=== PATIENT | female | born 1980 | race American Indian/Alaskan Native ===

== ENCOUNTER 2019-10-05 16:24 | Emergency (ER) | payer SELFPAY ==
--- NOTE | 2019-10-05 18:28 | Emergency Department Report ---
ED Psych HPI - General Chief Complaint: Psych Stated Complaint: MEDICAL CLEARANCE Time Seen by Provider: 10/05/19 18:14 Source: patient, EMS Mode of arrival: Ambulatory - History of Present Illness Initial Comments: Patient is 39 years old female with no past psychiatric history. Patient was referred from [facility] to [place] for evaluation of auditory hallucination and tactile hallucination for the last 3 weeks. Patient stated that she is hearing voices asking had to move away from the door and when she moved she will her someone saying thank you. Patient also exhibiting a bizarre behavior. Patient also stating that she is feeling something crawling on her legs into her private area. Patient stated that she feels "want to get a scissor and poke herself. Patient denied any suicidal or homicidal ideation. She also denied any visual hallucination. MD Complaint: altered mental status Associated Psychiatric Symptoms: racing thoughts, auditory hallucinations History of same: No Quality: constant Associated Symptoms: denies other symptoms Treatments Prior to Arrival: placed on mental he - Related Data Allergies Allergy/AdvReac Type Severity Reaction Status Date / Time No Known Allergies Allergy Verified 10/05/19 17:20 ED Review of Systems ROS: Stated complaint: MEDICAL CLEARANCE Other details as noted in HPI Comment: All other systems reviewed and negative Constitutional: denies: chills, fever Respiratory: denies: cough, shortness of breath, SOB with exertion, SOB at rest, wheezing Cardiovascular: denies: chest pain, palpitations Gastrointestinal: denies: abdominal pain, nausea, vomiting, diarrhea, constipation, hematemesis, melena Neurological: denies: headache, weakness Psychiatric: auditory hallucinations. denies: depression, visual hallucinations, homicidal thoughts, suicidal thoughts ED Past Medical Hx - Past Medical History Previous Medical History?: No - Surgical History Past Surgical History?: Yes Additional Surgical History: myomectomy - Social History Smoking Status: Never Smoker Substance Use Type: None ED Physical Exam - General Limitations: No Limitations General appearance: alert, in no apparent distress, anxious - Head Head exam: Present: atraumatic, normocephalic, normal inspection - Eye Eye exam: Present: normal appearance, PERRL - ENT ENT exam: Present: normal exam, normal orophraynx, mucous membranes moist - Neck Neck exam: Present: normal inspection, full ROM. Absent: tenderness, meningismus, lymphadenopathy, thyromegaly - Respiratory Respiratory exam: Present: normal lung sounds bilaterally. Absent: respiratory distress, wheezes, rales, rhonchi, stridor, chest wall tenderness, accessory muscle use, decreased breath sounds, prolonged expiratory - Cardiovascular Cardiovascular Exam: Present: regular rate, normal rhythm, normal heart sounds - GI/Abdominal GI/Abdominal exam: Present: soft, normal bowel sounds. Absent: distended, tenderness, guarding, rebound, rigid, organomegaly, mass, bruit, pulsatile mass - Extremities Exam Extremities exam: Present: normal inspection, full ROM, normal capillary refill. Absent: tenderness, pedal edema, joint swelling, calf tenderness - Back Exam Back exam: Present: normal inspection, full ROM. Absent: CVA tenderness (R), CVA tenderness (L), muscle spasm, paraspinal tenderness, vertebral tenderness - Neurological Exam Neurological exam: Present: alert, oriented X3, CN II-XII intact, normal gait, reflexes normal - Psychiatric Psychiatric exam: Present: normal mood, anxious. Absent: depressed, agitated, manic, homicidal ideation, suicidal ideation - Skin Skin exam: Present: warm, intact, normal color Critical care attestation.: If time is entered above; I have spent that time in minutes in the direct care of this critically ill patient, excluding procedure time. ED Disposition Clinical Impression: Auditory hallucination, Tactile hallucination Disposition: DC/TX-65 PSY HOSP/PSY UNIT Is pt being admited?: No Condition: Stable
[2019-10-05 19:31] LABS: Basophils % (Auto) 0.3 % (0.0-1.8); Eosinophils # (Auto) 0.2 K/mm3 (0.0-0.4); Eosinophils % (Auto) 3.9 % (0.0-4.3); Hematocrit 38.1 % (30.3-42.9); Hemoglobin 12.4 gm/dl (10.1-14.3); Lymphocytes # (Auto) 1.9 K/mm3 (1.2-5.4); Lymphocytes % (Auto) 44.3 % (13.4-35.0); Mean Corpuscular HGB Conc 33 % (30-34); Mean Corpuscular Volume 83 fl (79-97); Monocytes # (Auto) 0.4 K/mm3 (0.0-0.8); Platelet Count 360 K/mm3 (140-440); Red Blood Count 4.57 M/mm3 (3.65-5.03)
[2019-10-05 19:49] LABS: BUN/Creatinine Ratio 20; Blood Urea Nitrogen 10 mg/dL (7-17); Calcium 10.1 mg/dL (8.4-10.2); Hemolysis Index 5
[2019-10-05 21:19] LABS: Bilirubin,Urine NEG (Negative); Blood,Urine MOD (Negative); Color,Urine Yellow (Yellow); Mucus,Urine 3+ /HPF; Urobilinogen,Urine < 2.0 mg/dL (<2.0)
[2019-10-05 21:24] LABS: Amphetamine Screen,Urine PRESUMPTIVE NEGATIVE; Benzodiazepines Screen,Urine PRESUMPTIVE NEGATIVE; Cannabinoid Screen,Urine PRESUMPTIVE NEGATIVE; Cocaine Screen,Urine PRESUMPTIVE NEGATIVE; Methadone Screen,Urine PRESUMPTIVE NEGATIVE; Opiate Screen,Urine PRESUMPTIVE NEGATIVE
[2019-10-07 09:27] VITALS: BP 130/90
== END 2019-10-07 11:34 ==
LOC: EEVIPCON 16:24 → ED 16:24
DX: R44.0 Auditory hallucinations (principal); R44.2 Other hallucinations
CPT/HCPCS: 36415; 80048; 80307; 80320; 81001; 84703; 85025; G0480

== ENCOUNTER 2021-03-16 18:03 | Emergency (ER) | payer OTHER, SELFPAY ==
--- NOTE | 2021-03-16 20:59 | Emergency Department Report ---
HPI - General Chief Complaint: Psych Time Seen by Provider: 03/16/21 20:45 - HPI HPI: This is a calm and pleasant 40-year-old female presents to the emergency department for a mental health evaluation. The patient has a history of paranoid schizophrenia for which she is compliant with her medications. Over the past 2 weeks she has been having auditory hallucinations that are telling her to "jump off a ledge." She says that the voices mostly occur when she is near a window. When asked if she has suicidal ideations the patient says "sometimes." She denies any current visual hallucinations or any homicidal ideations. The patient has a past medical history of high cholesterol for which he is also compliant with a medication. She denies any tobacco use, illicit drug use, or any alcohol use/abuse. Patient denies ever previously being in an inpatient psychiatric facility. She does not have a primary care physician or psychiatrist. ED Past Medical Hx - Past Medical History Previous Medical History?: Yes Additional medical history: Paranoid schizophrenia - Surgical History Additional Surgical History: myomectomy - Social History Smoking Status: Never Smoker Substance Use Type: None - Medications Home Medications: Home Medications Medication Instructions Recorded Confirmed Last Taken Type Citalopram [celeXA] 20 mg PO QDAY 03/16/21 03/16/21 Unknown History risperiDONE [RisperDAL] 1 mg PO QDAY 03/16/21 03/16/21 Unknown History risperiDONE [RisperDAL] 2 mg PO QHS 03/16/21 03/16/21 Unknown History ED Review of Systems ROS: Stated complaint: MENTAL HEALTH EVAL Other details as noted in HPI Comment: All other systems reviewed and negative Constitutional: denies: chills, fever Eyes: denies: vision change Respiratory: denies: cough, shortness of breath Cardiovascular: denies: chest pain, palpitations Gastrointestinal: denies: abdominal pain, vomiting Genitourinary: denies: dysuria, discharge Musculoskeletal: denies: back pain, joint swelling Neurological: denies: headache, weakness Psychiatric: auditory hallucinations, suicidal thoughts. denies: visual hallucinations, homicidal thoughts Physical Exam - Physical Exam Vital Signs: Vital Signs 03/16/21 18:33 Temperature 99.5 F Pulse Rate 100 H Respiratory 16 Rate Blood Pressure 126/69 [Right] O2 Sat by Pulse 100 Oximetry Physical Exam: GENERAL: The patient is well-developed well-nourished. HENT: Normocephalic. Atraumatic. Patient has moist mucous membranes. EYES: Extraocular motions are intact. NECK: Supple. Trachea is midline. CHEST/LUNGS: Clear to auscultation. There is no respiratory distress noted. HEART/CARDIOVASCULAR: Regular. There is no tachycardia. There is no murmur. ABDOMEN: Abdomen is soft, nontender. Patient has normal bowel sounds. SKIN: Skin is warm and dry. NEURO: The patient is awake, alert, and oriented. The patient is cooperative. Normal speech. MUSCULOSKELETAL: There is no tenderness or deformity. There is no limitation range of motion. ED Course Vital Signs 03/16/21 18:33 Temperature 99.5 F Pulse Rate 100 H Respiratory 16 Rate Blood Pressure 126/69 [Right] O2 Sat by Pulse 100 Oximetry ED Medical Decision Making - Lab Data Result diagrams: 03/16/21 20:54 03/16/21 20:54 Lab Results 03/16/21 03/16/21 03/16/21 Range/Units 20:54 20:54 20:54 WBC 7.2 (4.5-11.0) K/mm3 RBC 3.69 (3.65-5.03) M/mm3 Hgb 10.6 (10.1-14.3) gm/dl Hct 31.5 (30.3-42.9) % MCV 85 (79-97) fl MCH 29 (28-32) pg MCHC 34 (30-34) % RDW 13.8 (13.2-15.2) % Plt Count 373 (140-440) K/mm3 Lymph % (Auto) 27.5 (13.4-35.0) % Cache % (Auto) 9.1 H (0.0-7.3) % Eos % (Auto) 2.3 (0.0-4.3) % Baso % (Auto) 0.5 (0.0-1.8) % Lymph # (Auto) 2.0 (1.2-5.4) K/mm3 Cache # (Auto) 0.7 (0.0-0.8) K/mm3 Eos # (Auto) 0.2 (0.0-0.4) K/mm3 Baso # (Auto) 0.0 (0.0-0.1) K/mm3 Seg Neutrophils % 60.6 (40.0-70.0) % Seg Neutrophils # 4.4 (1.8-7.7) K/mm3 Sodium 138 (137-145) mmol/L Potassium 3.6 (3.6-5.0) mmol/L Chloride 101.9 (98-107) mmol/L Carbon Dioxide 28 (22-30) mmol/L Anion Gap 12 mmol/L BUN 9 (7-17) mg/dL Creatinine 0.5 L (0.6-1.2) mg/dL Estimated GFR > 60 ml/min BUN/Creatinine Ratio 18 % Glucose 70 (65-100) mg/dL Calcium 8.5 (8.4-10.2) mg/dL HCG, Qual (Negative) Urine Color (Yellow) Urine Turbidity (Clear) Urine pH (5.0-7.0) Ur Specific [place] (1.003-1.030) Urine Protein (Negative) mg/dL Urine Glucose (UA) (Negative) mg/dL Urine Ketones (Negative) mg/dL Urine Blood (Negative) Urine Nitrite (Negative) Urine Bilirubin (Negative) Urine Urobilinogen (<2.0) mg/dL Ur Leukocyte Esterase (Negative) Urine WBC (Auto) (0.0-6.0) /HPF Urine RBC (Auto) (0.0-6.0) /HPF U Epithel Cells (Auto) (0-13.0) /HPF Urine Mucus /HPF Urine Opiates Screen Urine Methadone Screen Ur Barbiturates Screen Ur Phencyclidine Scrn Ur Amphetamines Screen U Benzodiazepines Scrn Urine Cocaine Screen U Marijuana (THC) Screen Drugs of Abuse Note Plasma/Serum Alcohol < 0.01 (0-0.07) % 03/16/21 03/16/21 03/16/21 Range/Units 20:54 21:10 21:10 WBC (4.5-11.0) K/mm3 RBC (3.65-5.03) M/mm3 Hgb (10.1-14.3) gm/dl Hct (30.3-42.9) % MCV (79-97) fl MCH (28-32) pg MCHC (30-34) % RDW (13.2-15.2) % Plt Count (140-440) K/mm3 Lymph % (Auto) (13.4-35.0) % Cache % (Auto) (0.0-7.3) % Eos % (Auto) (0.0-4.3) % Baso % (Auto) (0.0-1.8) % Lymph # (Auto) (1.2-5.4) K/mm3 [place] # (Auto) (0.0-0.8) K/mm3 Eos # (Auto) (0.0-0.4) K/mm3 Baso # (Auto) (0.0-0.1) K/mm3 Seg Neutrophils % (40.0-70.0) % Seg Neutrophils # (1.8-7.7) K/mm3 Sodium (137-145) mmol/L Potassium (3.6-5.0) mmol/L Chloride (98-107) mmol/L Carbon Dioxide (22-30) mmol/L Anion Gap mmol/L BUN (7-17) mg/dL Creatinine (0.6-1.2) mg/dL Estimated GFR ml/min BUN/Creatinine Ratio % Glucose (65-100) mg/dL Calcium (8.4-10.2) mg/dL HCG, Qual Negative (Negative) Urine Color Straw (Yellow) Urine Turbidity Clear (Clear) Urine pH 7.0 (5.0-7.0) Ur Specific [place] 1.011 (1.003-1.030) Urine Protein <15 mg/dl (Negative) mg/dL Urine Glucose (UA) Neg (Negative) mg/dL Urine Ketones Neg (Negative) mg/dL Urine Blood Neg (Negative) Urine Nitrite Neg (Negative) Urine Bilirubin Neg (Negative) Urine Urobilinogen < 2.0 (<2.0) mg/dL Ur Leukocyte Esterase Lg (Negative) Urine WBC (Auto) 15.0 H (0.0-6.0) /HPF Urine RBC (Auto) 3.0 (0.0-6.0) /HPF U Epithel Cells (Auto) 2.0 (0-13.0) /HPF Urine Mucus Few /HPF Urine Opiates Screen Negative Urine Methadone Screen Negative Ur Barbiturates Screen Negative Ur Phencyclidine Scrn Negative Ur Amphetamines Screen Negative U Benzodiazepines Scrn Negative Urine Cocaine Screen Negative U Marijuana (THC) Screen Negative Drugs of Abuse Note Disclamer Plasma/Serum Alcohol (0-0.07) % - Medical Decision Making This patient presents to the emergency department for a mental health evaluation. She has a history of paranoid schizophrenia and says that she is co mpliant with her medications. She complains of auditory/command hallucinations telling her to jump off of a ledge or out of a window. This is combined with some intermittent suicidal ideations. For these reasons the patient has been made a 1013 and ED hold. She was seen by the psychiatric solar sales assessor, Pennie, who agrees with the plan for inpatient stabilization at this time. Patient's labs have been mostly unremarkable including CBC, metabolic panel, blood alcohol level, urine drug screen, but the patient does have a very mild urinary tract infection on urinalysis. She has been started on Macrobid. Vital signs have been reassuring throughout her ED course thus far. Her home medications have been reconciled. We will continue to monitor this patient during her ED course until she has definitive disposition. I consider this patient to be medically cleared for psychiatric placement at this time. Critical Care Time: No Critical care attestation.: If time is entered above; I have spent that time in minutes in the direct care of this critically ill patient, excluding procedure time. ED Disposition Clinical Impression: History of command hallucinations, Suicidal ideations Schizophrenia Qualifiers: Schizophrenia type: paranoid schizophrenia Qualified Code(s): F20.0 - Paranoid schizophrenia Disposition: DC/TX-65 PSY HOSP/PSY UNIT Is pt being admited?: No Condition: Stable Time of Disposition: 00:22
[2021-03-16 21:11] LABS: Basophils % (Auto) 0.5 % (0.0-1.8); Eosinophils # (Auto) 0.2 K/mm3 (0.0-0.4); Eosinophils % (Auto) 2.3 % (0.0-4.3); Hematocrit 31.5 % (30.3-42.9); Hemoglobin 10.6 gm/dl (10.1-14.3); Lymphocytes % (Auto) 27.5 % (13.4-35.0); Mean Corpuscular HGB Conc 34 % (30-34); Mean Corpuscular Volume 85 fl (79-97); Monocytes # (Auto) 0.7 K/mm3 (0.0-0.8); Monocytes % (Auto) 9.1 % (0.0-7.3); Platelet Count 373 K/mm3 (140-440); Red Blood Count 3.69 M/mm3 (3.65-5.03); Red Cell Distribution Width 13.8 % (13.2-15.2)
[2021-03-16 21:35] LABS: Blood Urea Nitrogen 9 mg/dL (7-17); Calcium 8.5 mg/dL (8.4-10.2); Hemolysis Index 0
[2021-03-16 21:36] LABS: BUN/Creatinine Ratio 18
[2021-03-16 21:39] LABS: Amphetamine Screen,Urine Negative; Benzodiazepines Screen,Urine Negative; Cannabinoid Screen,Urine Negative; Cocaine Screen,Urine Negative; Methadone Screen,Urine Negative; Opiate Screen,Urine Negative
[2021-03-16 21:40] LABS: Bilirubin,Urine NEG (Negative); Blood,Urine NEG (Negative); Color,Urine Straw (Yellow); Mucus,Urine FEW /HPF; Protein,Urine <15 mg/dL mg/dL (Negative); Urobilinogen,Urine < 2.0 mg/dL (<2.0)
[2021-03-16] MEDS ORDERED: NON-FORMULARY EACH (Risperidone [Risperdal] 2 MG Tablet) PO SCH (22:00)
[2021-03-16] MEDS: NITROFURANTOIN MONOHYD/M-CRYST 100 MG CAP PO SCH (22:37)
[2021-03-16] MEDS: risperiDONE 1 MG TAB PO SCH (22:37)
--- NOTE | 2021-03-17 09:54 | Consultation ---
History of Present Illness - Reason for Consult Consult date: 03/17/21 Reason for consult: command hallucinations - History of Present Psychiatric Illness Per ED Note: This is a calm and pleasant 40-year-old female presents to the emergency department for a mental health evaluation. The patient has a history of paranoid schizophrenia for which she is compliant with her medications. Over the past 2 weeks she has been having auditory hallucinations that are telling her to "jump off a ledge." She says that the voices mostly occur when she is near a window. When asked if she has suicidal ideations the patient says "sometimes." She denies any current visual hallucinations or any homicidal ideations. The patient has a past medical history of high cholesterol for which he is also compliant with a medication. She denies any tobacco use, illicit drug use, or any alcohol use/abuse. Patient denies ever previously being in an inpatient psychiatric facility. She does not have a primary care physician or psychiatrist. During my evaluation of 40y/o Jamilah Ibarra, she is pleasant, calm and cooperative. She is sitting facing the wall and makes poor eye contact. When asked why was she not looking at me, she replied "it's just the light." The patient says "I wasn't on my prescription. I missed 2 nights." She says "but I been hearing the voices for about 2 weeks." The patient says the voices are telling her to "jump out of the window and off of things." When asking the patient does she want to hurt herself she replies, "no, that's why I stay away from windows so I want do it." The patient has a history of schizophrenia and states she takes "citalopram and I think risperidone." She denies any history of alcohol, nicotine or illicit drug use. She denies any suicide attempt in the past. PAST PSYCHIATRIC HISTORY Diagnoses: schizophrenia Suicide attempts or Self-harm behavior: denies Prior psychiatric hospitalizations: Denies Substance Abuse history: denies Previous psychiatric medications tried: citalopram and risperidone Outpatient treatment: Denies PAST MEDICAL HISTORY: None reported Family Psychiatric History: None reported or documented SOCIAL HISTORY Marital Status: Single Living Arrangements: with caregiver Employment Status: Disabled Access to guns/weapons: denies Education: History of Abuse: None reported Legal History: None reported REVIEW OF SYSTEMS Constitutional: Negative for weight loss ENT: Negative for stridor Respiratory: Negative for cough or hemoptysis All other systems reviewed and are negative MENTAL STATUS EXAMINATION General Appearance and Behavior: Age appropriate, good hygiene, wearing appropriate clothes, calm, cooperative, pleasant, poor eye contact Cooperation: Participating/engaged Mood: "okay" Affect and affective range: congruent with mood Thought Process: illogical Thought Content: command hallucinations Speech: normal tone and pace Suicidal Ideation: Denies Homicidal Ideation: Denies Hallucinations: Auditory Delusions: None elicited Impulse Control: Unimpaired Insight and Judgment: Limited insight and judgment, Memory: Limited Attention: Undivided attention Orientation: Alert, oriented Assessment (1) Schizophrenia Treatment Plan 1013 Restart home meds Sitter: per primary Medical: Per primary Disposition: Recommend acute psychiatric treatment Will follow. Thank you for this consult Case staffed with Dr. Garcia Medications and Allergies Allergies Allergy/AdvReac Type Severity Reaction Status Date / Time No Known Allergies Allergy Verified 03/16/21 21:10 Home Medications Medication Instructions Recorded Confirmed Last Taken Type Citalopram [celeXA] 20 mg PO QDAY 03/16/21 03/16/21 Unknown History risperiDONE [RisperDAL] 1 mg PO QDAY 03/16/21 03/16/21 Unknown History risperiDONE [RisperDAL] 2 mg PO QHS 03/16/21 03/16/21 Unknown History Active Meds: Active Medications Citalopram Hydrobromide (Citalopram 20 Mg Tab) 20 mg PO QDAY [facility] Nitrofurantoin Macrocrystals (Nitrofurantoin Monohyd/M-Cryst 100 Mg Cap) 100 mg PO Q12HR [facility] Last Admin: 03/16/21 22:37 Dose: 100 mg Documented by: Risperidone (Risperidone 1 Mg Tab) 1 mg PO QDAY [facility] Risperidone (Risperidone 1 Mg Tab) 2 mg PO QHS [facility] Last Admin: 03/16/21 22:37 Dose: 2 mg Documented by: Mental Status Exam - Vital signs Last Vital Signs Temp 97.8 F 03/17/21 02:00 Pulse 80 03/17/21 02:00 Resp 18 03/17/21 02:00 BP 100/68 03/17/21 02:00 Pulse Ox 100 03/17/21 02:00 Results Result Diagrams: 03/16/21 20:54 03/16/21 20:54 Abnormal lab results 03/16/21 03/16/21 03/16/21 Range/Units 20:54 20:54 21:10 [place] % (Auto) 9.1 H (0.0-7.3) % Creatinine 0.5 L (0.6-1.2) mg/dL Urine WBC (Auto) 15.0 H (0.0-6.0) /HPF All other labs normal.
[2021-03-17] MEDS: CITALOPRAM 20 MG TAB PO SCH (10:20)
[2021-03-17] MEDS: risperiDONE 1 MG TAB PO SCH (10:20)
[2021-03-17] MEDS: NITROFURANTOIN MONOHYD/M-CRYST 100 MG CAP PO SCH (10:20)
--- NOTE | 2021-03-17 10:40 | Event Note ---
S: "My daughter says I am not taking my medications. I still hear the voices." Patient denies physical complaints. O: stable vital signs, patient alert in no distress A: paranoid schizophrenia SI command hallucinations P: Awaiting acceptance to inpatient psychiatric facility according to MH consultation
[2021-03-18 02:32] VITALS: BP 113/77
[2021-03-18] MEDS: NITROFURANTOIN MONOHYD/M-CRYST 100 MG CAP PO SCH ×2 (09:54)
[2021-03-18] MEDS: CITALOPRAM 20 MG TAB PO SCH (09:54)
[2021-03-18] MEDS: risperiDONE 1 MG TAB PO SCH ×2 (09:55)
--- NOTE | 2021-03-18 10:04 | Event Note ---
S: sleeing O: stable vital signs, patient alert in no distress A: paranoid schizophrenia SI command hallucinations patient is medically clear for psychiatric care I have reviewed labs and vital signs. P: Awaiting acceptance to inpatient psychiatric facility according to MH consultation. Case is under reviewed at [facility]
--- NOTE | 2021-03-18 10:40 | Progress Note ---
Subjective - Reason for Consult Consult date: 03/18/21 Reason for consult: hallucinations - Chief Complaint Chief complaint: The patient was seen today. She is pleasant, calm and cooperative. The patient says "getting back on the medication has made a difference." She says "the voices are really no long there and they are not telling me to jump or hurt myself." She denies SI/HI. She says "that's what I was saying yesterday. I wouldn't do it, the voices were telling me that, but not today." The patient denies any fear or feeling of endangerment. She says she slept well. REVIEW OF SYSTEMS Constitutional: Negative for weight loss ENT: Negative for stridor Respiratory: Negative for cough or hemoptysis All other systems reviewed and are negative MENTAL STATUS EXAMINATION General Appearance and Behavior: Age appropriate, good hygiene, wearing appropriate clothes, calm, cooperative, pleasant, goo eye contact Cooperation: Participating/engaged Mood: "better" Affect and affective range: congruent with mood Thought Process: goal directed Thought Content: none Speech: normal tone and pace Suicidal Ideation: Denies Homicidal Ideation: Denies Hallucinations: Denies Delusions: None elicited Impulse Control: Unimpaired Insight and Judgment: Limited insight and judgment, Memory: Limited Attention: Undivided attention Orientation: Alert, oriented Assessment (1) Schizophrenia Treatment Plan d/c 1013 Continue home meds Sitter: per primary Medical: Per primary Disposition: Do not recommend acute psychiatric treatment. The patient understands that if SI/HI or fear of endangerment return she is to seek immediate assistance including but not limited to the crisis hotline, 911/ER The store clerk cashier is to further discuss safety plan and document The patient is to follow up in 7 to 14 days upon discharge Will sign off. Thank you for this consult Case staffed with Dr. Garcia Mental Status Exam - Vital signs Last Vital Signs Temp 97.8 F 03/18/21 02:25 Pulse 82 03/18/21 02:25 Resp 18 03/18/21 02:25 BP 113/77 03/18/21 02:25 Pulse Ox 98 03/18/21 02:25
== END 2021-03-18 13:00 | disposition home or self-care (01) ==
LOC: ED 18:03
DX: F20.0 Paranoid schizophrenia (principal); R45.851 Suicidal ideations; Z20.822 Contact with and (suspected) exposure to COVID-19; Z98.890 Other specified postprocedural states; Z86.59 Personal history of other mental and behavioral disorders; Z79.899 Other long term (current) drug therapy
CPT/HCPCS: 36415; 80048; 80307; 81001; 84703; 85025; 87086; 99284; U0003; 80320; G0480

== ENCOUNTER 2021-03-19 08:40 | Emergency (ER) | payer SELFPAY ==
[2021-03-19 09:34] LABS: Bilirubin,Urine NEG (Negative); Blood,Urine SM (Negative); Color,Urine Straw (Yellow); Protein,Urine <15 mg/dL mg/dL (Negative); Urobilinogen,Urine < 2.0 mg/dL (<2.0)
[2021-03-19 09:48] LABS: Amphetamine Screen,Urine Negative; Benzodiazepines Screen,Urine Negative; Cannabinoid Screen,Urine Negative; Cocaine Screen,Urine Negative; Methadone Screen,Urine Negative; Opiate Screen,Urine Negative
--- NOTE | 2021-03-19 11:21 | Emergency Department Report ---
HPI - General Chief Complaint: Psych Time Seen by Provider: 03/19/21 10:56 - HPI HPI: Room 17 The patient is a 40-year-old female present with a chief complaint of homelessness. The patient has a history of schizophrenia and was recently DCd 03/16/2021 for suicidal ideation and command hallucinations. Patient improved during her stay once she was placed back on her psychiatric medications. The patient was discharged back to her associate creative director however the associate creative director states she is no longer able to care for the patient so the patient was subsequently sent back to the ED. Patient currently denies complaints. Awaiting case management/social work consult ED Past Medical Hx - Past Medical History Additional medical history: Paranoid schizophrenia - Surgical History Additional Surgical History: myomectomy - Family History Family history: no significant - Social History Smoking Status: Never Smoker Substance Use Type: Alcohol - Medications Home Medications: Home Medications Medication Instructions Recorded Confirmed Last Taken Type Citalopram [celeXA] 20 mg PO QDAY 03/16/21 03/16/21 Unknown History risperiDONE [RisperDAL] 1 mg PO QDAY 03/16/21 03/16/21 Unknown History risperiDONE [RisperDAL] 2 mg PO QHS 03/16/21 03/16/21 Unknown History ED Review of Systems ROS: Stated complaint: MH EVAL Other details as noted in HPI Constitutional: no symptoms reported Eyes: denies: eye pain ENT: denies: throat pain Respiratory: no symptoms reported Cardiovascular: denies: chest pain Endocrine: no symptoms reported Gastrointestinal: denies: abdominal pain Genitourinary: denies: dysuria Musculoskeletal: denies: back pain Neurological: denies: headache Psychiatric: denies: suicidal thoughts Physical Exam - Physical Exam Vital Signs: Vital Signs 03/19/21 03/19/21 08:51 11:10 Temperature 97.9 F Pulse Rate 84 Respiratory 20 16 Rate Blood Pressure 125/87 O2 Sat by Pulse 100 Oximetry Physical Exam: GENERAL: The patient is well-developed well-nourished female sitting on stretcher not appearing to be in acute distress. [] HEENT: Normocephalic. Atraumatic. Extraocular motions are intact. Patient has moist mucous membranes. NECK: Supple. Trachea midline CHEST/LUNGS: Clear to auscultation. There is no respiratory distress noted. HEART/CARDIOVASCULAR: Regular. There is no tachycardia. There is no gallop rub or murmur. ABDOMEN: Abdomen is soft, nontender. Patient has normal bowel sounds. There is no abdominal distention. SKIN: There is no rash. There is no edema. There is no diaphoresis. NEURO: The patient is awake, alert, and oriented. The patient is cooperative. The patient has no focal neurologic deficits. The patient has normal speech MUSCULOSKELETAL: There is no evidence of acute injury. ED Course Vital Signs 03/19/21 03/19/21 08:51 11:10 Temperature 97.9 F Pulse Rate 84 Respiratory 20 16 Rate Blood Pressure 125/87 O2 Sat by Pulse 100 Oximetry ED Medical Decision Making - Lab Data Result diagrams: 03/19/21 10:27 03/19/21 10:27 Laboratory Tests 03/19/21 03/19/21 03/19/21 08:59 08:59 10:27 WBC RBC Hgb Hct MCV MCH MCHC RDW Plt Count Lymph % (Auto) [place] % (Auto) Eos % (Auto) Baso % (Auto) Lymph # (Auto) [place] # (Auto) Eos # (Auto) Baso # (Auto) Seg Neutrophils % Seg Neutrophils # Sodium Potassium Chloride Carbon Dioxide Anion Gap BUN Creatinine Estimated GFR BUN/Creatinine Ratio Glucose Calcium Urine Color Straw Urine Turbidity Clear Urine pH 7.0 Ur Specific [place] 1.008 Urine Protein <15 mg/dl Urine Glucose (UA) Neg Urine Ketones Neg Urine Blood Sm Urine Nitrite Neg Urine Bilirubin Neg Urine Urobilinogen < 2.0 Ur Leukocyte Esterase Neg Urine WBC (Auto) 1.0 Urine RBC (Auto) 3.0 U Epithel Cells (Auto) < 1.0 Ur Transition Epith Cell 1 Salicylates < 0.3 L Urine Opiates Screen Negative Urine Methadone Screen Negative Acetaminophen Ur Barbiturates Screen Negative Ur Phencyclidine Scrn Negative Ur Amphetamines Screen Negative U Benzodiazepines Scrn Negative Urine Cocaine Screen Negative U Marijuana (THC) Screen Negative Drugs of Abuse Note Disclamer Plasma/Serum Alcohol 03/19/21 03/19/21 03/19/21 10:27 10:27 10:27 WBC RBC Hgb Hct MCV MCH MCHC RDW Plt Count Lymph % (Auto) [place] % (Auto) Eos % (Auto) Baso % (Auto) Lymph # (Auto) [place] # (Auto) Eos # (Auto) Baso # (Auto) Seg Neutrophils % Seg Neutrophils # Sodium 137 Potassium 4.1 Chloride 95.6 L Carbon Dioxide 29 Anion Gap 17 BUN 9 Creatinine 0.5 L Estimated GFR > 60 BUN/Creatinine Ratio 18 Glucose 73 Calcium 9.7 Urine Color Urine Turbidity Urine pH Ur Specific [place] Urine Protein Urine Glucose (UA) Urine Ketones Urine Blood Urine Nitrite Urine Bilirubin Urine Urobilinogen Ur Leukocyte Esterase Urine WBC (Auto) Urine RBC (Auto) U Epithel Cells (Auto) Ur Transition Epith Cell Salicylates Urine Opiates Screen Urine Methadone Screen Acetaminophen 5.0 L Ur Barbiturates Screen Ur Phencyclidine Scrn Ur Amphetamines Screen U Benzodiazepines Scrn Urine Cocaine Screen U Marijuana (THC) Screen Drugs of Abuse Note Plasma/Serum Alcohol < 0.01 03/19/21 10:27 WBC 6.0 RBC 4.52 Hgb 12.6 Hct 37.7 D MCV 83 MCH 28 MCHC 34 RDW 13.4 Plt Count 481 H Lymph % (Auto) 22.2 [place] % (Auto) 6.0 Eos % (Auto) 0.3 Baso % (Auto) 1.2 Lymph # (Auto) 1.3 [place] # (Auto) 0.4 Eos # (Auto) 0.0 Baso # (Auto) 0.1 Seg Neutrophils % 70.3 H Seg Neutrophils # 4.2 Sodium Potassium Chloride Carbon Dioxide Anion Gap BUN Creatinine Estimated GFR BUN/Creatinine Ratio Glucose Calcium Urine Color Urine Turbidity Urine pH Ur Specific [place] Urine Protein Urine Glucose (UA) Urine Ketones Urine Blood Urine Nitrite Urine Bilirubin Urine Urobilinogen Ur Leukocyte Esterase Urine WBC (Auto) Urine RBC (Auto) U Epithel Cells (Auto) Ur Transition Epith Cell Salicylates Urine Opiates Screen Urine Methadone Screen Acetaminophen Ur Barbiturates Screen Ur Phencyclidine Scrn Ur Amphetamines Screen U Benzodiazepines Scrn Urine Cocaine Screen U Marijuana (THC) Screen Drugs of Abuse Note Plasma/Serum Alcohol - Differential Diagnosis Homelessness Critical care attestation.: If time is entered above; I have spent that time in minutes in the direct care of this critically ill patient, excluding procedure time. ED Disposition Clinical Impression: Homelessness Disposition: DC-01 TO HOME OR SELFCARE Is pt being admited?: No Does the pt Need Aspirin: No Condition: Stable Additional Instructions: Per psych provider, Deisi Denny, Pt has been cleared by psych. Outpatient resources placed in d/c instructions. Resources include [place] Crisis line and psychiatric providers. In case of an emergency, please contact the following numbers: Professional and Agency Contacts To help Resolve Crises(19/05) [place] Crisis Line: Suicide Prevention Line: Crisis Text Line: Text START to [phone] Emergency: 911 Outpatient COMMUNITY Behavioral Health Resources: [place]: [facility] [address] [place], [place] [address] [place]: [facility] [address] [place] [address] [place]: [facility] - [address] [place] [address] Friday thru Friday - 8am - 5pm [place]: [facility] Address: [address] [place] [address] [place]: [facility] Address: [address] [place] [address] Friday thru Friday- 7am-2pm [facility] Address: [address] [place] [address] Friday thru Friday: 8:30AM-5PM Phone: [phone] Referrals: PRIMARY CARE, [Primary Care Provider] - 3-5 Days
[2021-03-19] MEDS: CITALOPRAM 20 MG TAB PO SCH (12:01)
[2021-03-19 12:07] LABS: Basophils # (Auto) 0.1 K/mm3 (0.0-0.1); Basophils % (Auto) 1.2 % (0.0-1.8); Eosinophils % (Auto) 0.3 % (0.0-4.3); Hematocrit 37.7 % (30.3-42.9); Hemoglobin 12.6 gm/dl (10.1-14.3); Lymphocytes # (Auto) 1.3 K/mm3 (1.2-5.4); Lymphocytes % (Auto) 22.2 % (13.4-35.0); Mean Corpuscular HGB Conc 34 % (30-34); Mean Corpuscular Volume 83 fl (79-97); Monocytes # (Auto) 0.4 K/mm3 (0.0-0.8); Platelet Count 481 K/mm3 (140-440); Red Blood Count 4.52 M/mm3 (3.65-5.03); Red Cell Distribution Width 13.4 % (13.2-15.2)
[2021-03-19 12:12] LABS: Blood Urea Nitrogen 9 mg/dL (7-17); Calcium 9.7 mg/dL (8.4-10.2); Hemolysis Index 19
[2021-03-19 12:13] LABS: BUN/Creatinine Ratio 18
[2021-03-19] MEDS ORDERED: NON-FORMULARY EACH (Risperidone [Risperdal] 2 MG Tablet) PO SCH (22:00)
[2021-03-19] MEDS: risperiDONE 1 MG TAB PO SCH (22:46)
[2021-03-19] MEDS ORDERED: SODIUM CHLORIDE 0.9% 1000 ML 1,000 ML ONE (22:50)
[2021-03-19] MEDS ORDERED: SODIUM CHLORIDE 0.9% 500 ML 500 ML IV ONE (22:58)
[2021-03-20] MEDS ORDERED: SODIUM CHLORIDE 0.9% 1000 ML 1,000 ML IV ONE (00:17)
[2021-03-20] MEDS: CITALOPRAM 20 MG TAB PO SCH (09:34)
--- NOTE | 2021-03-20 10:24 | Event Note ---
Date: 03/20/21 Patient has no complaint. No issues overnight. Vital signs stable. Labs reviewed and is unremarkable. Waiting for placement.
[2021-03-20] MEDS: risperiDONE 1 MG TAB PO SCH (22:54)
--- NOTE | 2021-03-21 10:37 | Event Note ---
Date: 03/21/21 No overnight issues. Vital signs stable. Waiting for placement.
[2021-03-21] MEDS: CITALOPRAM 20 MG TAB PO SCH (11:03)
--- NOTE | 2021-03-21 13:58 | XRay Report ---
XR chest routine 2V INDICATION / CLINICAL INFORMATION: TB screening, psych placement COMPARISON: None available. FINDINGS: SUPPORT DEVICES: None. HEART / MEDIASTINUM: No significant abnormality. LUNGS / PLEURA: Lungs are clear. Costophrenic sulci are sharp. No pneumothorax. ADDITIONAL FINDINGS: No significant additional findings. IMPRESSION: 1. No acute findings. Signer Name: Zacarias Nicolas MD Signed: 03/21/2021 1:54 PM Workstation Name: [email or web address]
[2021-03-21] MEDS: risperiDONE 1 MG TAB PO SCH (21:50)
[2021-03-22] MEDS: CITALOPRAM 20 MG TAB PO SCH (12:03)
[2021-03-22] MEDS: risperiDONE 1 MG TAB PO SCH (21:58)
[2021-03-23 08:30] VITALS: BP 106/67
[2021-03-23] MEDS: CITALOPRAM 20 MG TAB PO SCH (09:52)
[2021-03-23] MEDS ORDERED: diphenhydrAMINE 25 MG CAP PO PRN (10:34)
[2021-03-23] MEDS ORDERED: ACETAMINOPHEN 325 MG TAB PO PRN (10:34)
--- NOTE | 2021-03-23 11:07 | Event Note ---
Date: 03/23/21 The patient was evaluated in the emergency department for symptoms described in the history of present illness. He/she was evaluated in the context of the global COVID-19 pandemic, which necessitated consideration that the patient might be at risk for infection with the virus that causes COVID-19. Institutional protocols and algorithms that pertain to the evaluation of patients at risk for COVID-19 are in a state of rapid change based on information released by regulatory bodies including the CDC and federal and state organizations. These policies and algorithms were followed during the patient's care in the emergency department. Please note that these policies, procedures and recommendations changed on a rapid basis. Laboratory studies, vital signs, case management, psychiatric, and ER documentation reviewed and appreciated. Patient resting comfortably on chair, and in no acute distress. She is not articulated any emergent medical complaints to nursing team. She remains medically suitable for case management placement and care at this time. As needed orders placed by myself. Medically suitable for case management/soci al disposition at this time. Vital Signs 03/19/21 03/19/21 03/19/21 08:51 11:10 16:44 Temperature 97.9 F Pulse Rate 84 70 Respiratory 20 16 14 Rate Blood Pressure 125/87 Blood Pressure 112/71 [Left] O2 Sat by Pulse 100 100 Oximetry 03/19/21 03/19/21 03/20/21 22:54 23:36 02:16 Temperature 97.4 F L Pulse Rate 114 H 86 Respiratory 18 18 16 Rate Blood Pressure Blood Pressure 88/43 91/63 [Left] O2 Sat by Pulse 98 98 100 Oximetry 03/20/21 03/20/21 03/20/21 08:02 20:30 22:42 Temperature 98 F 98.8 F Pulse Rate 86 90 Respiratory 20 20 16 Rate Blood Pressure Blood Pressure 110/66 100/59 [Left] O2 Sat by Pulse 98 97 97 Oximetry 03/21/21 03/21/21 03/22/21 11:39 19:57 01:48 Temperature 98.6 F 98.5 F 98.5 F Pulse Rate 75 98 H 85 Respiratory 20 18 19 Rate Blood Pressure Blood Pressure 107/65 99/56 110/68 [Left] O2 Sat by Pulse 98 97 98 Oximetry 03/22/21 03/22/21 03/23/21 10:04 19:48 02:38 Temperature 97.9 F 99.1 F 98.0 F Pulse Rate 86 98 H 85 Respiratory 18 19 16 Rate Blood Pressure Blood Pressure 109/73 108/61 108/72 [Left] O2 Sat by Pulse 100 100 100 Oximetry 03/23/21 08:25 Temperature 98 F Pulse Rate 84 Respiratory 20 Rate Blood Pressure Blood Pressure 106/67 [Left] O2 Sat by Pulse 100 Oximetry Lab Results 03/19/21 03/19/21 03/19/21 Range/Units 08:59 08:59 10:27 WBC (4.5-11.0) K/mm3 RBC (3.65-5.03) M/mm3 Hgb (10.1-14.3) gm/dl Hct (30.3-42.9) % MCV (79-97) fl MCH (28-32) pg MCHC (30-34) % RDW (13.2-15.2) % Plt Count (140-440) K/mm3 Lymph % (Auto) (13.4-35.0) % [place] % (Auto) (0.0-7.3) % Eos % (Auto) (0.0-4.3) % Baso % (Auto) (0.0-1.8) % Lymph # (Auto) (1.2-5.4) K/mm3 [place] # (Auto) (0.0-0.8) K/mm3 Eos # (Auto) (0.0-0.4) K/mm3 Baso # (Auto) (0.0-0.1) K/mm3 Seg Neutrophils % (40.0-70.0) % Seg Neutrophils # (1.8-7.7) K/mm3 Sodium (137-145) mmol/L Potassium (3.6-5.0) mmol/L Chloride (98-107) mmol/L Carbon Dioxide (22-30) mmol/L Anion Gap mmol/L BUN (7-17) mg/dL Creatinine (0.6-1.2) mg/dL Estimated GFR ml/min BUN/Creatinine Ratio % Glucose (65-100) mg/dL Calcium (8.4-10.2) mg/dL Urine Color Straw (Yellow) Urine Turbidity Clear (Clear) Urine pH 7.0 (5.0-7.0) Ur Specific [place] 1.008 (1.003-1.030) Urine Protein <15 mg/dl (Negative) mg/dL Urine Glucose (UA) Neg (Negative) mg/dL Urine Ketones Neg (Negative) mg/dL Urine Blood Sm (Negative) Urine Nitrite Neg (Negative) Urine Bilirubin Neg (Negative) Urine Urobilinogen < 2.0 (<2.0) mg/dL Ur Leukocyte Esterase Neg (Negative) Urine WBC (Auto) 1.0 (0.0-6.0) /HPF Urine RBC (Auto) 3.0 (0.0-6.0) /HPF U Epithel Cells (Auto) < 1.0 (0-13.0) /HPF Ur Transition Epith Cell 1 /HPF Salicylates < 0.3 L (2.8-20.0) mg/dL Urine Opiates Screen Negative Urine Methadone Screen Negative Acetaminophen (10.0-30.0) ug/mL Ur Barbiturates Screen Negative Ur Phencyclidine Scrn Negative Ur Amphetamines Screen Negative U Benzodiazepines Scrn Negative Urine Cocaine Screen Negative U Marijuana (THC) Screen Negative Drugs of Abuse Note Disclamer Plasma/Serum Alcohol (0-0.07) % 03/19/21 03/19/21 03/19/21 Range/Units 10:27 10:27 10:27 WBC (4.5-11.0) K/mm3 RBC (3.65-5.03) M/mm3 Hgb (10.1-14.3) gm/dl Hct (30.3-42.9) % MCV (79-97) fl MCH (28-32) pg MCHC (30-34) % RDW (13.2-15.2) % Plt Count (140-440) K/mm3 Lymph % (Auto) (13.4-35.0) % [place] % (Auto) (0.0-7.3) % Eos % (Auto) (0.0-4.3) % Baso % (Auto) (0.0-1.8) % Lymph # (Auto) (1.2-5.4) K/mm3 [place] # (Auto) (0.0-0.8) K/mm3 Eos # (Auto) (0.0-0.4) K/mm3 Baso # (Auto) (0.0-0.1) K/mm3 Seg Neutrophils % (40.0-70.0) % Seg Neutrophils # (1.8-7.7) K/mm3 Sodium 137 (137-145) mmol/L Potassium 4.1 (3.6-5.0) mmol/L Chloride 95.6 L (98-107) mmol/L Carbon Dioxide 29 (22-30) mmol/L Anion Gap 17 mmol/L BUN 9 (7-17) mg/dL Creatinine 0.5 L (0.6-1.2) mg/dL Estimated GFR > 60 ml/min BUN/Creatinine Ratio 18 % Glucose 73 (65-100) mg/dL Calcium 9.7 (8.4-10.2) mg/dL Urine Color (Yellow) Urine Turbidity (Clear) Urine pH (5.0-7.0) Ur Specific [place] (1.003-1.030) Urine Protein (Negative) mg/dL Urine Glucose (UA) (Negative) mg/dL Urine Ketones (Negative) mg/dL Urine Blood (Negative) Urine Nitrite (Negative) Urine Bilirubin (Negative) Urine Urobilinogen (<2.0) mg/dL Ur Leukocyte Esterase (Negative) Urine WBC (Auto) (0.0-6.0) /HPF Urine RBC (Auto) (0.0-6.0) /HPF U Epithel Cells (Auto) (0-13.0) /HPF Ur Transition Epith Cell /HPF Salicylates (2.8-20.0) mg/dL Urine Opiates Screen Urine Methadone Screen Acetaminophen 5.0 L (10.0-30.0) ug/mL Ur Barbiturates Screen Ur Phencyclidine Scrn Ur Amphetamines Screen U Benzodiazepines Scrn Urine Cocaine Screen U Marijuana (THC) Screen Drugs of Abuse Note Plasma/Serum Alcohol < 0.01 (0-0.07) % 03/19/21 Range/Units 10:27 WBC 6.0 (4.5-11.0) K/mm3 RBC 4.52 (3.65-5.03) M/mm3 Hgb 12.6 (10.1-14.3) gm/dl Hct 37.7 D (30.3-42.9) % MCV 83 (79-97) fl MCH 28 (28-32) pg MCHC 34 (30-34) % RDW 13.4 (13.2-15.2) % Plt Count 481 H (140-440) K/mm3 Lymph % (Auto) 22.2 (13.4-35.0) % [place] % (Auto) 6.0 (0.0-7.3) % Eos % (Auto) 0.3 (0.0-4.3) % Baso % (Auto) 1.2 (0.0-1.8) % Lymph # (Auto) 1.3 (1.2-5.4) K/mm3 [place] # (Auto) 0.4 (0.0-0.8) K/mm3 Eos # (Auto) 0.0 (0.0-0.4) K/mm3 Baso # (Auto) 0.1 (0.0-0.1) K/mm3 Seg Neutrophils % 70.3 H (40.0-70.0) % Seg Neutrophils # 4.2 (1.8-7.7) K/mm3 Sodium (137-145) mmol/L Potassium (3.6-5.0) mmol/L Chloride (98-107) mmol/L Carbon Dioxide (22-30) mmol/L Anion Gap mmol/L BUN (7-17) mg/dL Creatinine (0.6-1.2) mg/dL Estimated GFR ml/min BUN/Creatinine Ratio % Glucose (65-100) mg/dL Calcium (8.4-10.2) mg/dL Urine Color (Yellow) Urine Turbidity (Clear) Urine pH (5.0-7.0) Ur Specific [place] (1.003-1.030) Urine Protein (Negative) mg/dL Urine Glucose (UA) (Negative) mg/dL Urine Ketones (Negative) mg/dL Urine Blood (Negative) Urine Nitrite (Negative) Urine Bilirubin (Negative) Urine Urobilinogen (<2.0) mg/dL Ur Leukocyte Esterase (Negative) Urine WBC (Auto) (0.0-6.0) /HPF Urine RBC (Auto) (0.0-6.0) /HPF U Epithel Cells (Auto) (0-13.0) /HPF Ur Transition Epith Cell /HPF Salicylates (2.8-20.0) mg/dL Urine Opiates Screen Urine Methadone Screen Acetaminophen (10.0-30.0) ug/mL Ur Barbiturates Screen Ur Phencyclidine Scrn Ur Amphetamines Screen U Benzodiazepines Scrn Urine Cocaine Screen U Marijuana (THC) Screen Drugs of Abuse Note Plasma/Serum Alcohol (0-0.07) %
== END 2021-03-23 14:47 | disposition home or self-care (01) ==
LOC: EEVIPCON 08:40 → ED 08:40
DX: F20.0 Paranoid schizophrenia (principal); Z59.0 Homelessness; Z90.89 Acquired absence of other organs; Z79.899 Other long term (current) drug therapy; Z98.890 Other specified postprocedural states
CPT/HCPCS: 36415; 71046; 80048; 80307; 81001; 85025; 96360; 96361; 99285; J7030; J7040; 80320; G0480

== ENCOUNTER 2021-03-23 20:05 | Emergency (ER) | payer OTHER, SELFPAY ==
[2021-03-23 22:13] LABS: Basophils % (Auto) 0.3 % (0.0-1.8); Eosinophils # (Auto) 0.1 K/mm3 (0.0-0.4); Eosinophils % (Auto) 1.6 % (0.0-4.3); Hematocrit 34.1 % (30.3-42.9); Hemoglobin 11.3 gm/dl (10.1-14.3); Lymphocytes # (Auto) 1.7 K/mm3 (1.2-5.4); Lymphocytes % (Auto) 25.7 % (13.4-35.0); Mean Corpuscular HGB Conc 33 % (30-34); Mean Corpuscular Volume 85 fl (79-97); Monocytes # (Auto) 0.7 K/mm3 (0.0-0.8); Monocytes % (Auto) 11.4 % (0.0-7.3); Platelet Count 389 K/mm3 (140-440); Red Blood Count 4.01 M/mm3 (3.65-5.03); Red Cell Distribution Width 14.1 % (13.2-15.2)
[2021-03-23 22:30] LABS: Blood Urea Nitrogen 15 mg/dL (7-17); Calcium 9.6 mg/dL (8.4-10.2); Hemolysis Index 11
[2021-03-23 22:31] LABS: BUN/Creatinine Ratio 25
[2021-03-23 23:42] LABS: Bilirubin,Urine NEG (Negative); Blood,Urine NEG (Negative); Color,Urine Yellow (Yellow); Mucus,Urine FEW /HPF; Protein,Urine <15 mg/dL mg/dL (Negative); Urobilinogen,Urine < 2.0 mg/dL (<2.0)
[2021-03-23 23:51] LABS: Amphetamine Screen,Urine PRESUMPTIVE NEGATIVE; Benzodiazepines Screen,Urine PRESUMPTIVE NEGATIVE; Cannabinoid Screen,Urine PRESUMPTIVE NEGATIVE; Cocaine Screen,Urine PRESUMPTIVE NEGATIVE; Methadone Screen,Urine PRESUMPTIVE NEGATIVE; Opiate Screen,Urine PRESUMPTIVE NEGATIVE
--- NOTE | 2021-03-24 00:30 | Emergency Department Report ---
ED Psych HPI - General Chief Complaint: Psych Stated Complaint: SUICIDAL IDEATIONS Time Seen by Provider: 03/24/21 00:14 Source: patient Mode of arrival: Stretcher - History of Present Illness Initial Comments: 40-year-old female, history of schizophrenia, homelessness, presents to ED with suicidal ideations. Patient presented on 03/16/2021 with command auditory hallucinations telling her to jump out of the window. Patient was placed back on her psychiatric medications and symptoms improved over the next 2 days. Patient was no longer having hallucinations or suicidal ideations and was discharged on 03/18/2021. Patient returned the next day on 03/19/2021, citing issues with her lens edge grinder machine who stated that they could no longer care for the patient, so patient returned to the ED. Patient was seen by Case Management and a new personal fpc was arranged for the patient. Per case management note, patient's brother in [place] states that he is willing to pay for patient's personal fpc. According to the patient, she has returned to the ED because she went to the bank with her new lens edge grinder machine because the lens edge grinder machine stated that she wanted to be paid upfront. Patient states they were at the bank and were told that they could not release any funds to the patient. Patient states she was told by new lens edge grinder machine that she could not stay with her because she was unable to pay. Patient states this then made her feel suicidal again, even though she has been on her medications for the past week. Patient states her plan is to jump out of the window. Per previous aids social worker note, the new lens edge grinder machine is Ms. Walters with [facility]. I attempted to reach Ms. Walters at [phone], however, there was no answer. Complaint: suicidal ideation -: This evening Associated Psychiatric Symptoms: suicidal ideation History of same: Yes Quality: constant Improves With: none Worsens With: none Context: significant life stressor Associated Symptoms: denies other symptoms Treatments Prior to Arrival: none If Self Harm: admits thoughts of Details of Plan: jump from window - Related Data Home Medications Medication Instructions Recorded Confirmed Last Taken risperiDONE [RisperDAL] 1 mg PO QDAY 03/16/21 03/16/21 Unknown Previous Rx's Medication Instructions Recorded Last Taken Type Citalopram [Celexa] 20 mg PO QDAY #30 03/27/21 Unknown Rx risperiDONE [RisperDAL] 1 mg PO QDAY #30 tablet 03/27/21 Unknown Rx risperiDONE [RisperDAL] 2 mg PO QHS #30 03/27/21 Unknown Rx Allergies Allergy/AdvReac Type Severity Reaction Status Date / Time No Known Allergies Allergy Verified 03/19/21 08:46 ED Review of Systems ROS: Stated complaint: SUICIDAL IDEATIONS Other details as noted in HPI Comment: All other systems reviewed and negative Psychiatric: depression, suicidal thoughts ED Past Medical Hx - Past Medical History Previous Medical History?: Yes Hx Psychiatric Treatment: Yes Additional medical history: Paranoid schizophrenia - Surgical History Past Surgical History?: Yes Additional Surgical History: myomectomy - Social History Smoking Status: Never Smoker Substance Use Type: None - Medications Home Medications: Home Medications Medication Instructions Recorded Confirmed Last Taken Type risperiDONE [RisperDAL] 1 mg PO QDAY 03/16/21 03/16/21 Unknown History Citalopram [Celexa] 20 mg PO QDAY #30 03/27/21 Unknown Rx risperiDONE [RisperDAL] 1 mg PO QDAY #30 tablet 03/27/21 Unknown Rx risperiDONE [RisperDAL] 2 mg PO QHS #30 03/27/21 Unknown Rx ED Physical Exam - General Limitations: No Limitations General appearance: alert, in no apparent distress - Head Head exam: Present: atraumatic, normocephalic - Eye Eye exam: Present: normal appearance, EOMI - ENT ENT exam: Present: mucous membranes moist - Neck Neck exam: Present: normal inspection - Respiratory Respiratory exam: Present: normal lung sounds bilaterally. Absent: respiratory distress - Cardiovascular Cardiovascular Exam: Present: regular rate, normal rhythm - GI/Abdominal GI/Abdominal exam: Absent: distended - Extremities Exam Extremities exam: Present: normal inspection - Neurological Exam Neurological exam: Present: alert, oriented X3 - Psychiatric Psychiatric exam: Present: normal affect, normal mood - Skin Skin exam: Present: warm, dry, intact, normal color ED Course Vital Signs 03/23/21 03/24/21 03/24/21 21:41 00:26 00:27 Temperature 98.5 F 98.0 F Pulse Rate 97 H 78 Respiratory 18 18 18 Rate Blood Pressure Blood Pressure 114/73 108/64 [Right] O2 Sat by Pulse 100 98 18 L Oximetry 03/24/21 03/24/21 03/24/21 02:00 09:12 20:18 Temperature 98.2 F 97.8 F 98.2 F Pulse Rate 76 76 91 H Respiratory 18 20 18 Rate Blood Pressure Blood Pressure 106/66 110/66 99/55 [Right] O2 Sat by Pulse 100 99 98 Oximetry 03/25/21 03/25/21 03/25/21 02:00 08:37 19:56 Temperature 97.7 F 98.3 F Pulse Rate 66 71 Respiratory 16 20 18 Rate Blood Pressure Blood Pressure 102/69 105/53 [Right] O2 Sat by Pulse 100 98 98 Oximetry 03/25/21 03/26/21 03/26/21 20:00 01:00 07:53 Temperature 98.0 F 98.0 F 97.8 F Pulse Rate 90 83 79 Respiratory 20 18 18 Rate Blood Pressure 112/61 Blood Pressure 96/63 107/58 [Right] O2 Sat by Pulse 99 98 100 Oximetry 03/26/21 03/27/21 03/27/21 19:20 01:22 09:45 Temperature 98.8 F 98.2 F 98.8 F Pulse Rate 96 H 68 Respiratory 18 16 18 Rate Blood Pressure 121/75 Blood Pressure 101/64 94/63 [Right] O2 Sat by Pulse 99 97 Oximetry 03/27/21 20:50 Temperature 98.6 F Pulse Rate 89 Respiratory 16 Rate Blood Pressure Blood Pressure 112/71 [Right] O2 Sat by Pulse 98 Oximetry ED Medical Decision Making - Lab Data Result diagrams: 03/23/21 21:54 03/23/21 21:54 - Medical Decision Making Patient is medically clear for mental health evaluation. Will dispo per psych. Critical care attestation.: If time is entered above; I have spent that time in minutes in the direct care of this critically ill patient, excluding procedure time. ED Disposition Clinical Impression: Schizophrenia, Discharge planning issues Disposition: -01 TO HOME OR SELFCARE Is pt being admited?: No Condition: Stable Instructions: Schizophrenia, Managing Schizophrenia Additional Instructions: Professional and Agency Contacts To help Resolve Crises (19/05) [place] Crisis Line: Suicide Prevention Line: Crisis Text Line: Text START to [phone] Emergency: 911 Outpatient COMMUNITY Behavioral Health Resources: [place]: [facility] [address] [place] [address] [place]: [facility] [address] [place] [address] Friday thru Friday - 8am - 5pm Call to schedule an assessment for mental health and substance abuse programs [place]: [facility] Address: [address] [place] [address] Friday thru Friday- 7am-2pm [facility] Address: [address] [place] [address] Friday thru Friday: 8:30AM-5PM Prescriptions: risperiDONE [RisperDAL] 2 mg PO QHS #30 Citalopram [Celexa] 20 mg PO QDAY #30 risperiDONE [RisperDAL] 1 mg PO QDAY #30 tablet Referrals: PRIMARY CARE, [Primary Care Provider] - 3-5 Days
[2021-03-24] MEDS: risperiDONE 1 MG TAB PO SCH ×2 (10:20→21:56)
[2021-03-24] MEDS: CITALOPRAM 20 MG TAB PO SCH (10:20)
--- NOTE | 2021-03-24 11:05 | Event Note ---
Date: 03/24/21 Patient seen this morning on routine rounding. No issues overnight.
--- NOTE | 2021-03-24 11:13 | Consultation ---
History of Present Illness - Reason for Consult Consult date: 03/24/21 Reason for consult: MHE Requesting physician: ADRIEN VILLANUEVA - History of Present Psychiatric Illness Per ED Note:40-year-old female, history of schizophrenia, homelessness, presents to ED with suicidal ideations. Patient presented on 03/16/2021 with command auditory hallucinations telling her to jump out of the window. Patient was placed back on her psychiatric medications and symptoms improved over the next 2 days. Patient was no longer having hallucinations or suicidal ideations and was discharged on 03/18/2021. Patient returned the next day on 03/19/2021, citing issues with her cutting table operator first who stated that they could no longer care for the patient, so patient returned to the ED. Patient was seen by Case Management and a new personal correction was arranged for the patient. Per case management note, patient's brother in [place] states that he is willing to pay for patient's personal correction. According to the patient, she has returned to the ED because she went to the bank with her new cutting table operator first because the cutting table operator first stated that she wanted to be paid upfront. Patient states they were at the bank and were told that they could not release any funds to the patient. Patient states she was told by new cutting table operator first that she could not stay with her because she was unable to pay. Patient states this then made her feel suicidal again, even though she has been on her medications for the past week. Patient states her plan is to jump out of the window. Per previous social media intern note, the new cutting table operator first is Ms. Walters with [facility]. I attempted to reach Ms. Walters at [phone], however, there was no answer. Psych HPI Patient is a 40-year-old single, unemployed female with past psychiatric history of schizophrenia who has been evaluated and seen in this facility prior almost single discharge from the facility yesterday who presents today with chief complaint of suicidal ideation due to homelessness. Per patient, she states that she is here sort of because she does not have a place to go, reports she was just discharged from here and when she was staying she was asked to leave and kicked out of the house. Patient said housing situation made her depressed and she had thoughts of wanting to hurt self. She says if social media intern is able to help her, she would be fine. PAST PSYCHIATRIC HISTORY Diagnoses: schizophrenia Suicide attempts or Self-harm behavior: denies Prior psychiatric hospitalizations: Denies Substance Abuse history: denies Previous psychiatric medications tried: citalopram and risperidone Outpatient treatment: Denies PAST MEDICAL HISTORY: None reported Family Psychiatric History: None reported or documented SOCIAL HISTORY Marital Status: Single Living Arrangements: with caregiver Employment Status: Disabled Access to guns/weapons: denies Education: History of Abuse: None reported Legal History: None reported REVIEW OF SYSTEMS Constitutional: Negative for weight loss ENT: Negative for stridor Respiratory: Negative for cough or hemoptysis All other systems reviewed and are negative MENTAL STATUS EXAMINATION General Appearance and Behavior: Age appropriate, good hygiene, wearing appropriate clothes, calm, cooperative, pleasant, poor eye contact Cooperation: Participating/engaged Mood: "okay" Affect and affective range: congruent with mood Thought Process: illogical Thought Content: command hallucinations Speech: normal tone and pace Suicidal Ideation: Denies Homicidal Ideation: Denies Hallucinations: Auditory Delusions: None elicited Impulse Control: Unimpaired Insight and Judgment: Limited insight and judgment, Memory: Limited Attention: Undivided attention Orientation: Alert, oriented Assessment and Plan - Psychiatric problem (1) Depression Current Visit: Yes Status: Acute F32.9`` MEDICATIONS: Risks, benefits and alternatives of medications discussed with the patient, questions answered and consent obtained from patient. PSYCHOTHERAPY: Supportive psychotherapy provided MEDICAL: Per primary team DELIRIUM PRECAUTIONS: Please re-orient patient frequently, keep lights on during the day, and minimize benzodiazepines and opiates as these medications could worsen patient's confusion. HELMET BINDER: DISPOSITION: Do Not Recommend acute inpatient psychiatric hospitalization at this time. Case discussed with Dr. Garcia who agrees with current disposition LEGAL STATUS: 1013 rescinded FOLLOW-UP: Will sign off Thank you for the consult. Please contact with any questions and/or concerns. Medications and Allergies Allergies Allergy/AdvReac Type Severity Reaction Status Date / Time No Known Allergies Allergy Verified 03/19/21 08:46 Home Medications Medication Instructions Recorded Confirmed Last Taken Type Citalopram [celeXA] 20 mg PO QDAY 03/16/21 03/16/21 Unknown History risperiDONE [RisperDAL] 1 mg PO QDAY 03/16/21 03/16/21 Unknown History risperiDONE [RisperDAL] 2 mg PO QHS 03/16/21 03/16/21 Unknown History Active Meds: Active Medications Citalopram Hydrobromide (Citalopram 20 Mg Tab) 20 mg PO QDAY [facility] Last Admin: 03/24/21 10:20 Dose: 20 mg Documented by: Risperidone (Risperidone 1 Mg Tab) 1 mg PO QDAY [facility] Last Admin: 03/24/21 10:20 Dose: 1 mg Documented by: Risperidone (Risperidone 1 Mg Tab) 2 mg PO QHS [facility] Mental Status Exam - Vital signs Last Vital Signs Temp 97.8 F 03/24/21 09:12 Pulse 76 03/24/21 09:12 Resp 20 03/24/21 09:12 BP 110/66 03/24/21 09:12 Pulse Ox 99 03/24/21 09:12 Results Result Diagrams: 03/23/21 21:54 03/23/21 21:54 Abnormal lab results 03/23/21 03/23/21 03/23/21 Range/Units 21:54 21:54 21:54 Taylor % (Auto) (0.0-7.3) % Carbon Dioxide 31 H (22-30) mmol/L Salicylates < 0.3 L (2.8-20.0) mg/dL Acetaminophen 5.0 L (10.0-30.0) ug/mL 03/23/21 Range/Units 21:54 Taylor % (Auto) 11.4 H (0.0-7.3) % Carbon Dioxide (22-30) mmol/L Salicylates (2.8-20.0) mg/dL Acetaminophen (10.0-30.0) ug/mL All other labs normal. Assessment and Plan - Psychiatric problem (1) Depression Current Visit: Yes Status: Acute
[2021-03-25] MEDS: CITALOPRAM 20 MG TAB PO SCH (09:48)
[2021-03-25] MEDS: risperiDONE 1 MG TAB PO SCH ×2 (09:48→22:24)
[2021-03-26] MEDS: risperiDONE 1 MG TAB PO SCH ×2 (10:19→21:38)
[2021-03-26] MEDS: CITALOPRAM 20 MG TAB PO SCH (10:19)
--- NOTE | 2021-03-26 10:57 | Event Note ---
Date: 03/26/21 EMR reviewed. Consult reviewed. 1013 was rescinded. Case management patient now. Vital signs are stable.
[2021-03-27] MEDS: CITALOPRAM 20 MG TAB PO SCH (11:12)
[2021-03-27] MEDS: risperiDONE 1 MG TAB PO SCH (11:12)
[2021-03-27 20:51] VITALS: BP 112/71
== END 2021-03-27 21:25 | disposition home or self-care (01) ==
LOC: ED 20:05 → EEVIPCON 20:05 → ED 03-27 21:25
DX: F20.0 Paranoid schizophrenia (principal); Z02.9 Encounter for administrative examinations, unspecified; Z20.822 Contact with and (suspected) exposure to COVID-19; Z79.899 Other long term (current) drug therapy; Z98.890 Other specified postprocedural states
CPT/HCPCS: 36415; 80048; 80307; 81001; 84703; 85025; 99284; U0003; 80320; G0480